=== PATIENT | male | born 1995 | race Caucasian/White ===

== ENCOUNTER 2022-02-14 14:35 | Emergency (ER) | payer BC ==
[~2022-02-14] VITALS: Ht 185.4 cm; Wt 98.0 kg
[2022-02-14 14:58] VITALS: BP_SYST 92
[2022-02-14] MEDS ORDERED: ibuprofen tablet 400 MG TABLET PO ONE (15:05)
== END 2022-02-14 17:56 | disposition left against medical advice (07) ==
LOC: ER 14:36
DX: H92.01 Otalgia, right ear (principal); Z53.21 Procedure and treatment not carried out due to patient leaving prior to being seen by health care provider